=== PATIENT | female | born 1940 ===

== ENCOUNTER 2017-04-28 15:38 | Outpatient (CLI) | payer OTHER | END 2017-04-28 17:00 | disposition home or self-care (01) | LOC: MAMO-SONO 15:38 | DX: Z12.31 Encounter for screening mammogram for malignant neoplasm of breast (principal); Z87.898 Personal history of other specified conditions; N63.10 Unspecified lump in the right breast, unspecified quadrant; E11.65 Type 2 diabetes mellitus with hyperglycemia; E03.8 Other specified hypothyroidism ==

== ENCOUNTER 2021-09-19 09:35 | Inpatient (IN) | payer OTHER ==
[~2021-09-19] VITALS: Ht 162.6 cm; Wt 71.7 kg
[2021-09-19] MEDS ORDERED: CLOPIDOGREL BIS75 MG PO (09:58)
[2021-09-19] MEDS ORDERED: CARDURA8 MG PO (09:58)
[2021-09-19] MEDS ORDERED: HORIZANT300 MG PO (09:58)
[2021-09-19] MEDS ORDERED: LASIX20 MG PO (09:59)
[2021-09-19] MEDS ORDERED: PROTONIX20 MG PO (09:59)
== END 2021-09-25 19:19 | disposition home or self-care (01) | DRG 480 ==
LOC: ER 09:35 → SURH 21:56 → ER 21:56 → SURH 22:05
PROVIDERS: Orthopaedic Surgery; ADMIT Internal Medicine; ATTEND Internal Medicine
PROC: 0QS736Z Reposition Left Upper Femur with Intramedullary Internal Fixation Device, Percutaneous Approach (ICD-10-PCS; principal; 2021-09-20 09:15)
PROC: 0PSJ04Z Reposition Left Radius with Internal Fixation Device, Open Approach (ICD-10-PCS; 2021-09-20 09:15)
PROC: 30233N1 Transfusion of Nonautologous Red Blood Cells into Peripheral Vein, Percutaneous Approach (ICD-10-PCS; 2021-09-23)
DX: S52.572A Other intraarticular fracture of lower end of left radius, initial encounter for closed fracture (principal); S72.142A Displaced intertrochanteric fracture of left femur, initial encounter for closed fracture; D62 Acute posthemorrhagic anemia; Z20.822 Contact with and (suspected) exposure to COVID-19

== ENCOUNTER 2021-11-06 11:59 | Outpatient (CLI) | payer OTHER ==
[~2021-11-06 11:59] MED LIST: CARDURA8 MG PO; CLOPIDOGREL BIS75 MG PO; HORIZANT300 MG PO; LASIX20 MG PO; PROTONIX20 MG PO
== END 2021-11-06 12:01 | disposition home or self-care (01) ==
LOC: RAD 11:59
PROVIDERS: ATTEND Orthopaedic Surgery
DX: S72.142A Displaced intertrochanteric fracture of left femur, initial encounter for closed fracture (principal); S52.572A Other intraarticular fracture of lower end of left radius, initial encounter for closed fracture

== ENCOUNTER 2022-01-08 13:04 | Emergency (ER) | payer OTHER ==
[~2022-01-08] VITALS: Ht 162.6 cm; Wt 74.8 kg
== END 2022-01-08 20:02 | disposition home or self-care (01) ==
LOC: ER 13:04
DX: R55 Syncope and collapse (principal); Z91.013 Allergy to seafood